=== PATIENT | male | born 1960 | race Caucasian/White ===

== ENCOUNTER 2016-04-03 07:03 | Day surgery (SDC) | payer BC ==
--- NOTE | 2016-03-24 07:53 | HP ---
PREOPERATIVE HISTORY AND PHYSICAL: DATE OF SURGERY/ADMISSION: 04/03/16 [facility] PROCEDURE: Left wrist ganglion cyst excision. CHIEF COMPLAINT: Ganglion cyst left wrist. HISTORY OF PRESENT ILLNESS: This is a 55-year-old male who complains of a painful mass on the volar radial aspect of his wrist. He suffered fracture to this wrist last year and since then the mass has been present. An MRI recently ordered by Dr. eVlasco showed a ganglion cyst near the radial artery. The patient would like to have it removed. He denies any numbness or tingling associated with it. It bothers him mostly when he touches it. He states that the pain is tolerable; however, the patient is interested in definitive treatment in the form of surgical excision of the mass. PAST MEDICAL HISTORY: 1. Osteoarthritis. 2. Hypertension. PAST SURGICAL HISTORY: 1. Surgery on both legs as a child for genu varum. 2. Left index finger foreign body removal. 3. Right hand surgery to remove a "calcium deposit." 4. Hernia repair x2. CURRENT MEDICATIONS: 1. Amlodipine besylate 5 mg daily. 2. Aspirin 325 mg daily. 3. Epinephrine 0.3 mg/0.3 mL. 4. Hydrochlorothiazide 12.5 mg. 5. Magnesium 500 mg daily. 6. Naprosyn 500 mg 1 tablet b.i.d. p.r.n. inflammation and pain. 7. [place] 5/325 one to two tablets q.4-6 hours p.r.n. pain as prescribed by Dr. Velasco for arthritis pain. 8. Percocet 5/325 one to two tablets q.4-6 hours p.r.n. pain as prescribed by Dr. Velasco for arthritis pain. ALLERGIES: No known drug allergies. FAMILY MEDICAL HISTORY: Significant for breast cancer and heart disease. 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 He does admit to smoking approximately half a pack a day and has done so for the past 30 years. He denies illicit drug use. He denies alcohol use. REVIEW OF SYSTEMS: General: Negative for fevers, chills, or night sweats. No known anesthesia problems. HEENT: Negative for headache, lightheadedness, or syncopal episodes. Integumentary: Negative for abrasions, lesions, or open wounds. Cardiothoracic: Positive for hypertension. Negative for chest pain, palpitations, or edema. Pulmonary: Negative for shortness of breath with exertion, chronic cough, or COPD. GI: Positive for GERD, negative for nausea, vomiting, diarrhea, or constipation. : Negative for nocturia, urinary frequency, urgency, history of UTIs, or kidney problems. Musculoskeletal: Positive for current complaint and for osteoarthritis. Neurological: Negative for paresthesias, numbness, history of seizure, stroke, or epilepsy. Endocrine : Negative for diabetes or thyroid issues. Hematologic: Negative for easy bruising, anemia, excessive bleeding, or history of DVT. Infectious Disease: Negative for history of MRSA, hepatitis C, or HIV. PHYSICAL EXAMINATION GENERAL: Well-developed, well nourished 55-year-old male in no acute distress. VITAL SIGNS: Height 5 feet 4 inches, weight 232 pounds, pulse rate 88, blood pressure 155/99. HEENT: Normocephalic, atraumatic. Pupils are equal, round, and reactive to light and accommodation. Extraocular movements are intact. NECK: Supple. No palpable lymph nodes. Throat is clear. PULMONARY: Lungs are clear to auscultation bilaterally. No wheezes, rales, or rhonchi. CARDIOTHORACIC: Regular rate and rhythm. S1 and S2. No murmurs, rubs, or gallops. No edema. ABDOMEN: Positive bowel sounds, soft, nontender. NEUROLOGICAL: Alert and oriented x3. Cranial nerves II through X11 are intact. Sensation is intact to light touch. MUSCULOSKELETAL: On exam of the left wrist, he has a tender mass at the volar radial aspect. He has a palpable radial pulse. He can fully flex and extend his fingers. He has good wrist motion. His skin is intact. Neurovascular function is intact. IMAGING STUDIES: X-ray and MRI, x-ray shows a healed distal radius fracture in good position. MRI shows a small ganglion cyst. IMPRESSION: Left wrist ganglion cyst. PLAN: The patient is scheduled to undergo a left wrist ganglion cyst excision with Dr. Salcido on 04/03/16. He will return to the office 10 to 14 day postoperative for followup and suture removal. He has pain medications at home as prescribed by Dr. Velasco for his osteoarthritis and he will plan on using these for postoperative pain management. ASHLEE CONTRERAS [id number]/[facility] #: [id number] CODY
[~2016-04-03 07:03] MED LIST: Buffered Lidocaine 1% SYR 3ML* 3 ML/SYR SYRINGE INTRADERM ONE
[2016-04-03] MEDS ORDERED: Midazolam* 1 MG/ML 2 ML VIAL (2 MG) ONE (08:03)
[2016-04-03] MEDS ORDERED: fentaNYL* 50 MCG/ML 2 ML VIAL (100 MCG VIAL) ONE (08:03)
[2016-04-03] MEDS ORDERED: Lidocaine 1% INJ* 10 MG/ML 30 ML SDV ONE (08:25)
[2016-04-03 09:31] VITALS: BP 149/98
--- NOTE | 2016-04-03 13:44 | OP ---
DATE OF OPERATION: 04/03/16 [facility] DATE OF : 56 SURGEON: Yi Salcido MD MEDICAL TECHNOLOGIST CHEMISTRY: ASHLEE Ruff ANESTHESIOLOGIST: Milton Martin MD ANESTHESIA: Local MAC. PRE-OP DIAGNOSIS: Left volar wrist ganglion. POST-OP DIAGNOSIS: Left volar wrist ganglion. OPERATIVE PROCEDURE: Removal of left volar wrist ganglion. ESTIMATED BLOOD LOSS: Zero. TOURNIQUET TIME: About 15 minutes. INDICATION FOR PROCEDURE: Lewis is a 55-year-old man who has a painful mass on the volar aspect of his left wrist. MRI shows a ganglion cyst in close proximity to the radial artery. He presents for removal of the cyst. DESCRIPTION OF PROCEDURE: The patient was brought to the operating room, was given a sedation anesthetic, and a local infiltration of 10 cc of 1% plain lidocaine overlying the left wrist mass. The skin of his left hand and forearm was prepped and draped in the usual sterile fashion. The hand and forearm were exsanguinated and the tourniquet elevated to 250 mmHg. A chevron incision was made and centered over the wrist mass and we dissected bluntly through the subcutaneous tissue. There was a ganglion cyst, which was intwined with the radial artery. It was carefully dissected away from the radial artery and its vein and then down to the wrist joint capsule. It was removed with a small portion of the wrist joint capsule and the edges of the capsule were cauterized with the Bovie. The wound was irrigated and the skin edges were reapproximated with 4-0 nylon suture. The wound was dressed with Xeroform, 4x4s, Webril, and an Mart wrap. The patient tolerated the procedure well, was brought to the recovery room in good condition. [id number]/[facility] #: [id number] MTDD
== END 2016-04-03 09:41 | disposition home or self-care (01) ==
LOC: OREAST 07:03
PROVIDERS: ATTEND Orthopaedic Surgery
DX: M67.432 Ganglion, left wrist (principal); F17.210 Nicotine dependence, cigarettes, uncomplicated
CPT/HCPCS: 88304; J2250; J3010

== ENCOUNTER 2016-09-27 00:13 | Emergency (ER) | payer BC ==
[2016-09-27] MEDS ORDERED: Lidocaine 1% MDV 20 ML INJ ONE (02:49)
[2016-09-27] MEDS ORDERED: Lidocaine 1%* 5 ML VIAL ONE (02:57)
[2016-09-27] MEDS ORDERED: Lidocaine 1%* 5 ML VIAL INJ ONE (02:58)
[2016-09-27] MEDS ORDERED: Tetan/Diph/Pertus SYR(Tdap)* 0.5 ML SYR(BOOSTRIX) use SYR IM ONE (03:41)
[2016-09-27 03:45] VITALS: BP 140/86
--- NOTE | 2016-09-27 04:07 | ED ---
Honorio Ireland SooYoung, scribed for Chris Magdaleno MD on 09/27/16 at 0250 . Laceration/Wound HPI - HPI Summary HPI Summary: A 55 y/o M presents to ED with lac to the small finger of his R hand onset approx 1930. Pt states he was moving a small refridgerator and it slid over his hand. Denies numbness, pain to hand at bedside. He is L-hand dominant. Unsure if tetanus is UTD. 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 - History of Current Complaint Stated Complaint: RT PINKY LAC Time Seen by Provider: 09/27/16 02:36 Hx Obtained From: Patient, Family/Center Consultant Onset/Duration: Sudden Onset, Lasting Hours, Still Present Current Severity: Moderate Pain Intensity: 7 Pain Scale Used: 0-10 Numeric Associated Signs & Symptoms: Negative Related Hx: Dominant Hand (Left) - Allergy/Home Medications Allergies/Adverse Reactions: Allergies Allergy/AdvReac Type Severity Reaction Status Date / Time Bee Venom Allergy Severe Anaphylatic Verified 05/15/16 12:10 Shock PMH/Surg Hx/FS Hx/Imm Hx Previously Healthy: No Endocrine/Hematology History: Denies: Hx Diabetes, Hx Thyroid Disease Cardiovascular History: Reports: Hx Hypertension - ON MEDS Denies: Hx Congestive Heart Failure, Hx Deep Vein Thrombosis, Hx Myocardial Infarction, Hx Pacemaker/ICD Respiratory History: Denies: Hx Asthma, Hx Chronic Obstructive Pulmonary Disease (COPD), Hx Lung Cancer, Hx Pneumonia, Hx Pulmonary Embolism GI History: Denies: Hx Gall Bladder Disease, Hx Gastrointestinal Bleed, Hx Ulcer, Hx Urosepsis, Other GI Disorders History: Denies: Hx Kidney Stones, Hx Renal Disease Musculoskeletal History: Reports: Other Musculoskeletal History - rickets as a child Sensory History: Denies: Hx Contacts or Glasses, Hx Hearing Aid Opthamlomology History: Denies: Hx Contacts or Glasses Neurological History: Denies: Hx Dementia, Hx Migraine, Hx Seizures, Hx Transient Ischemic Attacks (TIA) Psychiatric History: Denies: Hx Anxiety, Hx Depression, Hx Panic Disorder, Hx Schizophrenia, Hx Bipolar Disorder - Surgical History Surgery Procedure, Year, and Place: BOTH LEGS SEVERAL SURGERYS PT STATES WAS BORN BOW LEGGED HAD 3 ON RT LEG HUMPHRIES,KNEE,THIGH, LT LEG HAD HUMPHRIES AND THIGH. 2 HERNIA REPAIRS. right hand surgery. left index finger foreign body removal. Lt WRIST - GANGLION CYST REMOVED Hx Anesthesia Reactions: No - Immunization History Date of Tetanus Vaccine: UTD Date of Influenza Vaccine: 2012 Infectious Disease History: No Infectious Disease History: Denies: Traveled Outside the US in Last 30 Days - Family History Known Family History: Positive: Cardiac Disease, Hypertension - Social History Occupation: Employed Full-time Lives: With Family Alcohol Use: Occasionally Alcohol Amount: holidays Hx Substance Use: No Substance Use Type: Reports: None Hx Tobacco Use: Yes Smoking Status (MU): Heavy Every Day Tobacco Smoker Amount Used/How Often: 1 ppd Have You Smoked in the Last Year: Yes Review of Systems Negative: Fever Positive: Other - neg: pain to R hand Positive: Other - lac to R hand Negative: Numbness - neg: numbness to R hand/finger All Other Systems Reviewed And Are Negative: Yes Physical Exam - Summary Physical Exam Summary: The patient is well-nourished in no acute distress and in no acute pain. The skin is warm and dry and skin color reflects adequate perfusion. HEENT: The head is normocephalic and atraumatic. The pupils are equal and reactive. The conjunctivae are clear and without drainage. Nares are patent and without drainage. Mouth reveals moist mucous membranes and the throat is without erythema and exudate. The external ears are intact. The ear canals are patent and without drainage. The tympanic membranes are intact. Neck is supple with full range of motion and non-tender. There are no carotid bruits. There is no neck vein distension. Respiratory: Chest is non-tender. Lungs are clear to auscultation and breath sounds are symmetrical and equal. Cardiovascular: Hear is regular rate and rhythm. There is no murmur or rub auscultated. There is no peripheral edema and pulses are symmetrical and equal. Abdomen: The abdomen is soft and non-tender. There are normal bowel sounds heard in all four quadrants and there is no organomegaly palpated. Musculoskeletal: There is no back pain noted. Extremities are non-tender with full range of motion. There is good capillary refill. There is no peripheral edema or calf tenderness elicited. R HAND EXAM: On radial aspect of 5th finger , there is a lac that is approx 3.5 - 4cm in length and approx 5mm wide, narrower at other end. Lac is in subQ fat. Pt has FROM of R hand, no osseous tenderness. Good light touch sensation. No obvious deformity. No ecchymosis. Neurological: Patient is alert and oriented to person, place and time. The patient has symmetrical motor strength in all four extremities. Cranial nerves are grossly intact. Deep tendon reflexes are symmetrical and equal in all four extremities. Psychiatric: The patient has an appropriate affect and does not exhibit any anxiety or depression. Triage Information Reviewed: Yes Vital Signs On Initial Exam: Initial Vitals Temp Pulse Resp BP Pulse Ox 98.2 F 124 17 164/97 95 09/27/16 00:18 09/27/16 00:18 09/27/16 00:18 09/27/16 00:18 09/27/16 00:18 Vital Signs Reviewed: Yes Procedures - Laceration/Wound Repair 1 Location: upper extremity - R hand Description: Linear Anesthesia: Digital, 1.0%, Lido - 4ccs Length, Depth and Shape: approx 3.5 - 4cm in length and approx 5mm wide, narrower at other end, n subQ fat Betadine Prep?: No - hibclense Irrigated w/ Saline (ccs): 250 Laceration/Wound Explored: clean Closure: Single Layer Suture Type: Prolene - 4-0 Number of Sutures: 9 - uninterrupted sutures Sterile Dressing Applied?: Yes Diagnostics - Vital Signs Vital Signs Temp Pulse Resp BP Pulse Ox 09/27/16 00:18 98.2 F 124 17 164/97 95 - Laboratory Lab Statement: Any lab studies that have been ordered have been reviewed, and results considered in the medical decision making process. Laceration Repair Course/Dx - Course Course Of Treatment: A 55 y/o M presents to ED with lac to the small finger of his R hand onset approx 1930. Pt states he was moving a small refridgerator and it slid over his hand. Denies numbness, pain to hand. He is L-hand dominant. Unsure if tetanus is UTD. 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 Lac repair performed, see procedure note. - Differential Dx Differental Diagnoses: Laceration - Clinical Impression Provider Diagnoses: Laceration of right hand Discharge - Discharge Plan Condition: Stable Disposition: HOME Patient Education Materials: Finger Laceration (ED), Care For Your Stitches (ED ) Referrals: Kerri Latif MD [Primary Care Provider] - (Follow up in 10-14 days for suture removal.) Additional Instructions: Keep dressing in place for 48 hours. Cleanse wound 2x a day with soap and water. Apply triple antibiotic ointment. The stitches should be removed in 10 days to 14 days at your primary care physician's office, the Urgent Care, or the ED. Watch for signs and symptoms of infection. Please return to the ED if you experience new or worsening symptoms. The documentation as recorded by the Honorio mcintosh SooYoung accurately reflects the service I personally performed and the decisions made by me, Chris Magdaleno MD.
== END 2016-09-27 03:50 | disposition home or self-care (01) ==
LOC: ED 00:13
DX: S61.411A Laceration without foreign body of right hand, initial encounter (principal); W22.8XXA Striking against or struck by other objects, initial encounter; Y93.9 Activity, unspecified; Y92.9 Unspecified place or not applicable; F17.210 Nicotine dependence, cigarettes, uncomplicated
CPT/HCPCS: 12002; 90471; 90715; 99282

== ENCOUNTER 2016-09-29 20:56 | Emergency (ER) | payer BC ==
--- NOTE | 2016-09-29 23:23 | ED ---
I, Chris,Soalan, scribed for Gianluca Mitchell MD on 09/29/16 at 2232 . Upper Extremity Pain - HPI Summary HPI Summary: This 55 y/o male presents to ED for RUE hand pain after a mechanical fall in garage at 2000 PM this evening. Fall is from standing position to garage floor. Pain is located on RUE digit #2, 3, 4, and 5. No obvious deformities is noted, but bandage is noted at #4 finger. Per pt bandage is from recent wound. Movement of fingers makes pain worse. PMHx includes HTN and GERD. Pt appears sleepy and groggy at time of initial evaluation. Son present at bedside reports that pt is usually asleep at this hour due to his early work hour starting from 0100 AM. - History of Current Complaint Chief Complaint: EDExtremityUpper Stated Complaint: RT HAND/FINGER INJURY Time Seen by Provider: 09/29/16 22:21 Hx Obtained From: Patient, Medical Records Mechanism Of Injury: Blunt Trauma, Fall From A Standing Position Onset/Duration: Still Present Timing: Constant Pain Location: Finger - RUE #2,3,4 and 5 Character: Dull Aggravating Factor(s): Movement Alleviating Factor(s): Rest Associated Signs & Symptoms: Positive: Swelling - Allergies/Home Medications Allergies/Adverse Reactions: Allergies Allergy/AdvReac Type Severity Reaction Status Date / Time Bee Venom Allergy Severe Anaphylatic Verified 09/29/16 21:02 Shock PMH/Surg Hx/FS Hx/Imm Hx Endocrine/Hematology History: Denies: Hx Diabetes, Hx Thyroid Disease Cardiovascular History: Reports: Hx Hypertension - ON MEDS Denies: Hx Congestive Heart Failure, Hx Deep Vein Thrombosis, Hx Myocardial Infarction, Hx Pacemaker/ICD Respiratory History: Denies: Hx Asthma, Hx Chronic Obstructive Pulmonary Disease (COPD), Hx Lung Cancer, Hx Pneumonia, Hx Pulmonary Embolism GI History: Denies: Hx Gall Bladder Disease, Hx Gastrointestinal Bleed, Hx Ulcer, Hx Urosepsis, Other GI Disorders History: Denies: Hx Kidney Stones, Hx Renal Disease Musculoskeletal History: Reports: Other Musculoskeletal History - rickets as a child Sensory History: Denies: Hx Contacts or Glasses, Hx Hearing Aid Opthamlomology History: Denies: Hx Contacts or Glasses Neurological History: Denies: Hx Dementia, Hx Migraine, Hx Seizures, Hx Transient Ischemic Attacks (TIA) Psychiatric History: Denies: Hx Anxiety, Hx Depression, Hx Panic Disorder, Hx Schizophrenia, Hx Bipolar Disorder - Surgical History Surgery Procedure, Year, and Place: BOTH LEGS SEVERAL SURGERYS PT STATES WAS BORN BOW LEGGED HAD 3 ON RT LEG HUMPHRIES,KNEE,THIGH, LT LEG HAD HUMPHRIES AND THIGH. 2 HERNIA REPAIRS. right hand surgery. left index finger foreign body removal. Lt WRIST - GANGLION CYST REMOVED Hx Anesthesia Reactions: No - Immunization History Date of Tetanus Vaccine: UTD Date of Influenza Vaccine: 2012 Infectious Disease History: No Infectious Disease History: Denies: Traveled Outside the US in Last 30 Days - Family History Known Family History: Positive: Cardiac Disease, Hypertension - Social History Alcohol Use: Occasionally Alcohol Amount: holidays Hx Substance Use: No Substance Use Type: Reports: None Hx Tobacco Use: Yes Smoking Status (MU): Heavy Every Day Tobacco Smoker Amount Used/How Often: 1 ppd Have You Smoked in the Last Year: Yes Review of Systems Negative: Fever Positive: Other - RUE hand pain. Pain located at #2,3,4, and 5 Neurological: Other All Other Systems Reviewed And Are Negative: Yes Physical Exam Triage Information Reviewed: Yes Vital Signs On Initial Exam: Initial Vitals Temp Pulse Resp BP Pulse Ox 98.0 F 79 18 127/54 94 09/29/16 21:00 09/29/16 21:00 09/29/16 21:00 09/29/16 21:00 09/29/16 21:00 Vital Signs Reviewed: Yes Appearance: Positive: Well-Appearing, No Pain Distress Skin: Positive: Warm, Skin Color Reflects Adequate Perfusion, Dry Head/Face: Positive: Normal Head/Face Inspection Neck: Positive: Supple, Nontender Respiratory/Lung Sounds: Positive: Breath Sounds Present Cardiovascular: Positive: RRR, Pulses are Symmetrical in both Upper and Lower Extremities Abdomen Description: Positive: Nontender, Soft Musculoskeletal: Positive: Other - Limited ROM at RUE digits #2,3,4, and 5. Swelling over dorsum of MPJ joints of #2,3,4 and 5. Neurological: Positive: Sensory/Motor Intact, Alert, Oriented to Person Place, Time, Other - Appears groggy. Son present at bedside reports that pt has early work hours starting from 0100 AM, and he is usually asleep at this hour. Psychiatric: Positive: Affect/Mood Appropriate AVPU Assessment: Alert Diagnostics - Vital Signs Vital Signs Temp Pulse Resp BP Pulse Ox 09/29/16 21:03 98.0 F 79 18 127/54 94 09/29/16 21:00 98.0 F 79 18 127/54 94 - Laboratory Lab Statement: Any lab studies that have been ordered have been reviewed, and results considered in the medical decision making process. - Radiology RUE hand Xray Interpretation: No Acute Changes Radiology Interpretation Completed By: ED Physician Re-Evaluation - Re-Evaluation First Eval Re-Evaluation Time: 22:51 Comment: MD in room to update pt and son on imaging results. Course/Dx - Course Course Of Treatment: It's hard to get Mr. 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 He has likely contused his hand and possible sprained it. He was put in a protective splint and sent for F/U. - Diagnoses Provider Diagnoses: Contusion of right hand Discharge - Discharge Plan Condition: Stable Disposition: HOME Patient Education Materials: Contusion in Adults (ED), Ibuprofen (By mouth) Forms: *Work Release Referrals: Kerri Latif MD [Primary Care Provider] - 2 Days The documentation as recorded by the Chris mcintosh Soohyun accurately reflects the service I personally performed and the decisions made by me, Gianluca Mitchell MD.
[2016-09-29 23:48] VITALS: BP 103/51
--- NOTE | 2016-09-30 07:16 | RAD ---
INDICATION: Right hand injury. TECHNIQUE: 3 views of the right hand were obtained. FINDINGS: There is soft tissue swelling and a laceration present in the fifth finger. The fingers are flexed in all views limiting the study. No fracture is seen. There is mild to moderate osteoarthritic change in the proximal and distal interphalangeal joints. IMPRESSION: SOFT TISSUE INJURY IN THE FIFTH FINGER, NO FRACTURE IS SEEN, IF THE PATIENT'S SYMPTOMS PERSIST RECOMMEND FOLLOW-UP IMAGING.
== END 2016-09-29 23:48 | disposition home or self-care (01) ==
LOC: ED 20:56
DX: S60.221A Contusion of right hand, initial encounter (principal); W19.XXXA Unspecified fall, initial encounter; Y93.9 Activity, unspecified; Y92.9 Unspecified place or not applicable; F17.210 Nicotine dependence, cigarettes, uncomplicated
CPT/HCPCS: 99282

== ENCOUNTER 2017-12-05 17:01 | Emergency (ER) | payer BC ==
[2017-12-05 17:20] VITALS: BP 150/97
--- NOTE | 2017-12-05 18:09 | UC ---
Respiratory Complaint HPI - HPI Summary HPI Summary: 1 wk cough in a smoker. denies fever, sob, wheezing, sick contacts. no recent travel - History of Current Complaint Chief Complaint: UCGeneralIllness Stated Complaint: COUGH, AND CHEST CONGESTION Time Seen by Provider: 12/05/17 17:49 Hx Obtained From: Patient Onset/Duration: Gradual Onset Timing: Intermittent Episodes Severity Initially: Mild Severity Currently: Mild Pain Intensity: 4 Pain Scale Used: 0-10 Numeric Character: Cough: Nonproductive Aggravating Factors: Nothing Alleviating Factors: Nothing Associated Signs And Symptoms: Positive: Negative - Risk Factors Cardiac Risk Factors: Hypertension, Smoking - Allergies/Home Medications Allergies/Adverse Reactions: Allergies Allergy/AdvReac Type Severity Reaction Status Date / Time bee venom protein (honey bee) Allergy anaphylaxis Verified 12/05/17 17:21 PMH/Surg Hx/FS Hx/Imm Hx Cardiovascular History: Hypertension Respiratory History: Other - chronic smoker Other Respiratory History: chronic smoker Other History Of: Negative For: HIV, Hepatitis B, Hepatitis C - Surgical History Surgical History: Yes Surgery Procedure, Year, and Place: BOTH LEGS SEVERAL SURGERYS PT STATES WAS BORN BOW LEGGED HAD 3 ON RT LEG HUMPHRIES,KNEE,THIGH, LT LEG HAD HUMPHRIES AND THIGH. 2 HERNIA REPAIRS. right hand surgery. left index finger foreign body removal. Lt WRIST - GANGLION CYST REMOVED - Family History Known Family History: Positive: Cardiac Disease, Hypertension - Social History Alcohol Use: None Alcohol Amount: holidays Substance Use Type: None Smoking Status (MU): Heavy Every Day Tobacco Smoker Amount Used/How Often: 20 cigarettes/day Have You Smoked in the Last Year: Yes Household Exposure Type: Cigarettes - Immunization History Most Recent Influenza Vaccination: not in 2018 Review of Systems Constitutional: Negative Skin: Negative Respiratory: Cough Cardiovascular: Negative Neurological: Negative All Other Systems Reviewed And Are Negative: Yes Physical Exam Triage Information Reviewed: Yes Appearance: Well-Appearing Vital Signs: Initial Vital Signs Temp 98 F 12/05/17 17:16 Pulse 91 12/05/17 17:16 Resp 16 12/05/17 17:16 BP 150/97 12/05/17 17:16 Pulse Ox 96 12/05/17 17:16 Vital Signs Reviewed: Yes ENT: Positive: TMs normal Neck: Positive: No Lymphadenopathy Respiratory: Positive: Chest non-tender, No respiratory distress, Decreased breath sounds - throughout. Negative: Accessory muscle use, Crackles, Rhonchi, Stridor Cardiovascular Exam: Normal Musculoskeletal: Positive: No Edema - in LE Neurological: Positive: Alert Skin Exam: Normal UC Diagnostic Evaluation - Laboratory O2 Sat by Pulse Oximetry: 96 Respiratory Course/Dx - Course Course Of Treatment: Cough in a smoker, no pneumonia on cxr. viral etiology. advised to use inhaler which should help cough. ? undiagnosed copd. tx'd htn but today elevated w/ no cardiac symptoms. - Differential Dx/Diagnosis Differential Diagnosis/HQI/PQRI: Asthma, Bronchitis, CHF, Exacerbation Of COPD, Lower Resp Infection, Sinusitis Provider Diagnoses: bronchitis,uncontrolled htn Discharge - Sign-Out/Discharge Documenting (check all that apply): Patient Departure All imaging exams completed and their final reports reviewed: No - Discharge Plan Condition: Good Disposition: HOME Prescriptions: Albuterol HFA INHALER* [Ventolin HFA Inhaler*] 1 puff INH Q4H PRN #1 mdi PRN Reason: Cough Patient Education Materials: Acute Bronchitis (ED) Forms: *Work Release Referrals: Kerri Latif MD [Primary Care Provider] - Additional Instructions: go to ED if worsening. follow up with pcp. - Billing Disposition and Condition Condition: GOOD Disposition: Home
[2017-12-05] MEDS ORDERED: Albuterol HFA INHALER* 8 gm MDI INH PRN (18:51)
[2017-12-05] MEDS ORDERED: Albuterol HFA INHALER* 8 gm MDI INH ONE (19:01)
--- NOTE | 2017-12-06 07:16 | RAD ---
INDICATION: Cough, history of smoking. COMPARISON: Comparison is made to prior study from March 03, 2003. TECHNIQUE: Dual-energy PA and lateral views of the chest were obtained. FINDINGS: The heart is within normal limits in size. Mediastinal and hilar contours appear within normal limits. The lungs are underinflated. There is a 6 mm nodular density which projects over the right upper lobe. There is also a faint linear metallic density which projects over the left upper lobe. The lungs are otherwise clear grossly clear. No pleural effusion is seen. There is flattening of diaphragms consistent with chronic obstructive pulmonary disease. The results of this examination were discussed with Dr. José. IMPRESSION: 1. THERE IS A 6 MM NODULAR DENSITY WHICH PROJECTS OVER THE RIGHT UPPER LOBE. RECOMMEND A CT OF THE CHEST WITHOUT CONTRAST FOR FURTHER EVALUATION. 2. FINDINGS CONSISTENT WITH COPD. R1F
--- NOTE | 2017-12-06 17:30 | UC ---
- Progress Note Progress Note: Radiology reading of chest x-ray from December 05, 2017 was read as findings consistent with COPD and also a pulmonary nodule. The provider's interpretation did not mention the pulmonary nodule on November. I called the patient and spoke to him inform him of these 2 findings and the need for a CT of the chest. Patient tells me he is following up with Dr. LATIF his primary care doctor on December 21, 2017 and he will discuss that with her then. Dr. LATIF was CC on the chest x-ray results. Discharge - Sign-Out/Discharge Documenting (check all that apply): Patient Departure All imaging exams completed and their final reports reviewed: Yes - Discharge Plan Condition: Good Disposition: HOME Prescriptions: Albuterol HFA INHALER* [Ventolin HFA Inhaler*] 1 puff INH Q4H PRN #1 mdi PRN Reason: Cough Patient Education Materials: Acute Bronchitis (ED) Forms: *Work Release Referrals: Kerri Latif MD [Primary Care Provider] - Additional Instructions: go to ED if worsening. follow up with pcp. - Billing Disposition and Condition Condition: GOOD Disposition: Home
== END 2017-12-05 19:17 | disposition home or self-care (01) ==
LOC: UCEAST 17:01
DX: J40 Bronchitis, not specified as acute or chronic (principal); I10 Essential (primary) hypertension; F17.210 Nicotine dependence, cigarettes, uncomplicated; Z91.030 Bee allergy status
CPT/HCPCS: 71046; 99212; A9270-GY; G0463

== ENCOUNTER 2018-08-29 10:26 | Emergency (ER) | payer BC ==
[2018-08-29 10:35] VITALS: BP 166/101
--- NOTE | 2018-08-29 11:21 | UC ---
Lower Extremity/Ankle HPI - HPI Summary HPI Summary: 57-year-old male presents with complaints of 2-3 day history of swelling to his left ankle. Patient reports he did sustain a sliver from his hardwood floor to the bottom of his left foot 6 weeks ago that he was unable to remove. He also reports a history of arthritis in his ankles with some previous swelling. Patient states that the swelling improves with elevation. He is able to walk and bear weight. Denies fever, chills, erythema, injury, calf pain or swelling, chest pain, shortness of breath, numbness, or tingling. - History of Current Complaint Chief Complaint: UCLowerExtremity Stated Complaint: FB IN FOOT LEG SWOLLEN Time Seen by Provider: 08/29/18 10:50 Hx Obtained From: Patient Pain Intensity: 7 - Allergies/Home Medications Allergies/Adverse Reactions: Allergies Allergy/AdvReac Type Severity Reaction Status Date / Time bee venom protein (honey bee) Allergy anaphylaxis Verified 08/29/18 10:35 PMH/Surg Hx/FS Hx/Imm Hx Cardiovascular History: Hypertension Respiratory History: COPD Other History Of: Negative For: HIV, Hepatitis B, Hepatitis C - Surgical History Surgical History: Yes Surgery Procedure, Year, and Place: BOTH LEGS SEVERAL SURGERYS PT STATES WAS BORN BOW LEGGED HAD 3 ON RT LEG HUMPHRIES,KNEE,THIGH, LT LEG HAD HUMPHRIES AND THIGH. 2 HERNIA REPAIRS. right hand surgery. left index finger foreign body removal. Lt WRIST - GANGLION CYST REMOVED - Family History Known Family History: Positive: Cardiac Disease, Hypertension - Social History Occupation: Employed Full-time Lives: With Family Alcohol Use: None Alcohol Amount: holidays Substance Use Type: None Smoking Status (MU): Heavy Every Day Tobacco Smoker Amount Used/How Often: 20 cigarettes/day Have You Smoked in the Last Year: Yes Household Exposure Type: Cigarettes - Immunization History Most Recent Influenza Vaccination: not in 2018 Review of Systems All Other Systems Reviewed And Are Negative: Yes Constitutional: Negative: Fever, Chills Skin: Negative: Other - erythema Respiratory: Positive: Negative Cardiovascular: Positive: Negative Gastrointestinal: Positive: Negative Genitourinary: Positive: Negative Motor: Negative: Weakness Neurovascular: Negative: Decreased Sensation Musculoskeletal: Positive: Other: - See HPI. Negative: Calf Tenderness Neurological: Positive: Negative Is Patient Immunocompromised?: No Physical Exam - Summary Physical Exam Summary: GENERAL APPEARANCE: Well developed, well nourished, alert and cooperative, and appears to be in no acute distress. CARDIAC: Normal S1 and S2. No S3, S4 or murmurs. Rhythm is regular. There is no peripheral edema, cyanosis or pallor. Extremities are warm and well perfused. Capillary refill is less than 2 seconds. Peripheral pulses intact. LUNGS: Clear to auscultation without rales, rhonchi, wheezing or diminished breath sounds. ABDOMEN: Positive bowel sounds. Soft, nondistended, nontender. No guarding or rebound. No masses or hepatosplenomegally. MUSKULOSKELETAL: Normal muscular development. Normal gait. EXTREMITIES: Mild edema left ankle without erythema, ecchymosis, or lesion. Full ROM. Circulation and sensation intact. Small area of tenderness with mild edema approximately 1 cm in diameter to the plantar left foot immediately inferior to the MTP of the 3rd toe without erythema, induration, fluctuance, or palpable FB. SKIN: Skin normal color, texture, and turgor. Triage Information Reviewed: Yes Vital Signs: Initial Vital Signs Temp 98 F 08/29/18 10:32 Pulse 87 08/29/18 10:32 Resp 18 08/29/18 10:32 BP 166/101 08/29/18 10:32 Pulse Ox 98 08/29/18 10:32 Vital Signs Reviewed: Yes Lower Extremity Course/Dx - Course Course Of Treatment: 57-year-old male presents with complaints of 2-3 day history of swelling to his left ankle. Patient reports he did sustain a sliver from his hardwood floor to the bottom of his left foot 6 weeks ago that he was unable to remove. He also reports a history of arthritis in his ankles with some previous swelling. Patient states that the swelling improves with elevation. He is able to walk and bear weight. Denies fever, chills, erythema, injury, calf pain or swelling, chest pain, shortness of breath, numbness, or tingling. Afebrile. Hypertensive otherwise vital signs stable. Patient had mild edema left ankle without erythema, ecchymosis, or lesion. Full ROM. Circulation and sensation intact. Small area of tenderness with mild edema approximately 1 cm in diameter to the plantar left foot immediately inferior to the MTP of the 3rd toe without erythema, induration, fluctuance, or palpable FB. I discussed with the patient that I felt it was unlikely that the ankle swelling is related to the sliver he sustained as I did not see any evidence of infection at this time. I suspect it is more likely that it is related to his underlying arthritis. I am recommending conservative treatment at this time including [id number] acetaminophen as needed for pain, rest, and elevation of the extremity. He is to follow-up with his primary care provider in 3 days if symptoms are not improving. Anticipatory guidance and warning symptoms reviewed with the patient. Verbalizes understanding of plan of care. - Differential Dx/Diagnosis Differential Diagnosis/HQI/PQRI: Arthritis, Gout, Infection, Other - Venous insufficiency Provider Diagnosis: Left ankle swelling Discharge - Sign-Out/Discharge Documenting (check all that apply): Patient Departure All imaging exams completed and their final reports reviewed: No Studies - Discharge Plan Condition: Stable Disposition: HOME Patient Education Materials: Arthritis (ED) Referrals: Kerri Latif MD [Primary Care Provider] - 3 Days Additional Instructions: I think that the swelling in your ankle is unrelated to the sliver you sustained previously. I suspect that this may be related to your arthritis. Rest the ankle as much as possible. Try to keep the leg elevated to help reduce any swelling. Use acetaminophen (Tylenol) according to directions as needed for any pain. Follow-up with your primary care provider in 3 days if symptoms are not improving. Seek immediate medical attention in the emergency room if you develop a fever greater than 100.5 F, have increased swelling, pain that is not managed with the acetaminophen, develop calf pain or swelling, chest pain, shortness of breath, or any worsening of symptoms. - Billing Disposition and Condition Condition: STABLE Disposition: Home
== END 2018-08-29 11:25 | disposition home or self-care (01) ==
LOC: UCEAST 10:26
DX: R22.42 Localized swelling, mass and lump, left lower limb (principal); I10 Essential (primary) hypertension; J44.9 Chronic obstructive pulmonary disease, unspecified; F17.210 Nicotine dependence, cigarettes, uncomplicated
CPT/HCPCS: 99211; G0463

== ENCOUNTER 2022-11-02 13:21 | Inpatient (IN) ==
[2022-11-03] MEDS ORDERED: Morphine 10 MG/ML VIAL (1 ml) ONE (09:51)
== END 2022-11-03 09:54 | disposition expired | DRG 862 ==
LOC: ICU 11-03 08:52 → MERGE 11-03 08:52
PROVIDERS: ADMIT Internal Medicine Critical Care Medicine; ATTEND Internal Medicine Critical Care Medicine